=== PATIENT | female | born 1965 | race Caucasian/White ===

== ENCOUNTER 2020-01-10 09:53 | Day surgery (SDC) | payer MEDICARE, MEDICAID, SELFPAY ==
[2020-01-03 13:39] VITALS: BMI 32.4
--- NOTE | 2020-01-06 09:44 | MHC.SHP ---
Pre-Procedural Eval Section A The patient is an INPATIENT: No Changes since office visit: No Cold of Flu in the past 2 weeks, No New Medical Problems, No Changes in Medication and No Patient answered all questions The History & Physical has been completed within 30 days and I have reviewed it.: Yes Section B Chief Complaint: Bilateral Dermatochalasis Allergies: Allergies Allergy/AdvReac Type Severity Reaction Status Date / Time No Known Allergies Allergy Verified 01/03/20 13:50 Plan Diagnosis/Plan: Unchanged Patient has been examined and remains a candidate for the planned procedure
--- NOTE | 2020-01-07 14:27 | HO.ANESPROP2 ---
Documented by User: Jil Cristobal 01/07/20 14:28 HPI - Anesthesia Eval Consult details Narrative: 54yo F for bilateral blepharoplasty PCP cleared [facility] Past Medical History Medical History Arthritis Back pain COPD (chronic obstructive pulmonary disease) History of fibromyalgia History of postoperative nausea and vomiting Hx of anxiety disorder Hx of syncope Hx pulmonary embolism Sleep apnea Wears dentures Surgical History Surgical History (Updated 01/03/20 @ 13:45 by Anjelica Holley) History of carpal tunnel release History of lumbar fusion Hx of cholecystectomy Hx of ventral hernia repair S/P panniculectomy Social History Social History Smoking Status: Former smoker Smoked in Last 30 Days: No Smoking Quit Date: 1993 Use of substances other than those prescribed or required for medical reasons: No Advance Directives Information Provided: No Recently lost weight without trying: No Meds Allergies Allergy/AdvReac Type Severity Reaction Status Date / Time No Known Allergies Allergy Verified 01/03/20 13:50 Home Medications Medication Instructions Recorded Confirmed Type fluticasone propionate [Flovent] 1 puff INHALATION QAM 01/03/20 01/03/20 History levalbuterol tartrate [Xopenex HFA] 2 puff INHALATION Q4-6H PRN 01/03/20 01/03/20 History salmeterol [Serevent Diskus] 1 inh INHALATION QPM 01/03/20 01/03/20 History Exam Exam Date and Time: January 07, 2020 1427 Height,Weight and Vital Signs: Height 5 ft 6 in Weight 91.1 kg Assessment and Plan Assessment Anesthesia Assessment: Chart Reviewed Documented by User: Ting Solis 01/10/20 11:25 [facility] Past Medical History Medical History Arthritis Back pain COPD (chronic obstructive pulmonary disease) History of fibromyalgia History of postoperative nausea and vomiting Hx of anxiety disorder Hx of syncope Hx pulmonary embolism Sleep apnea Wears dentures Surgical History Surgical History (Updated 01/03/20 @ 13:45 by Anjelica Holley) History of carpal tunnel release History of lumbar fusion Hx of cholecystectomy Hx of ventral hernia repair S/P panniculectomy Social History Social History Smoking Status: Former smoker Smoked in Last 30 Days: No Smoking Quit Date: 1993 Use of substances other than those prescribed or required for medical reasons: No Advance Directives Information Provided: No Recently lost weight without trying: No Meds Allergies Allergy/AdvReac Type Severity Reaction Status Date / Time No Known Allergies Allergy Verified 01/03/20 13:50 Home Medications Medication Instructions Recorded Confirmed Type fluticasone propionate [Flovent] 1 puff INHALATION QAM 01/03/20 01/03/20 History levalbuterol tartrate [Xopenex HFA] 2 puff INHALATION Q4-6H PRN 01/03/20 01/03/20 History salmeterol [Serevent Diskus] 1 inh INHALATION QPM 01/03/20 01/03/20 History Exam Airway Mallampati Class: I TM Dist: >3cm Denture: Upper and Lower Heart: RRR Lungs: CTA BL Assessment and Plan Assessment Anesthesia Assessment: Anesthesia Plan Discussed and Chart Reviewed Final Anesthetic Review NPO: Yes (Took inhaler) ASA Class: III Final Preanesthetic Review: Meds/Allgs Chart Reviewed and Consent Obtained/Reviewed Patient Risk: Intermediate Procedure Risk: Intermediate Anesthetic Plan Anesthetic Plan: MAC: Disposition: Standard PACU
[2020-01-10 11:22] VITALS: BP 128/72; PULSE 66; RESP 18; TEMP 36.4; O2SAT 96
[2020-01-10 11:38] VITALS: BP 128/72; PULSE 66; RESP 18; TEMP 36.4; O2SAT 96
[2020-01-10] MEDS: Lactated Ringers 500 ML 50 ML IV (11:40)
[2020-01-10 13:22] VITALS: BP 124/75; PULSE 54; RESP 16; TEMP 36.6; O2SAT 99
--- NOTE | 2020-01-10 13:22 | HO.PNOPHT ---
Ophthalmology Procedure Procedure Ophthalmology Viscoelastic: Not Applicable Ophthalmology Lenses: Not Applicable Procedure Notes: PREOPERATIVE DIAGNOSIS: Decreased visual field secondary to dermatochalasia and Left Upper Lid Lesion(Inclusion Cyst) POSTOPERATIVE DIAGNOSIS: Same PROCEDURE: Bilateral Blepharoplasty, upper eyelids and Excisional Biopsy SURGEON: Francis Beasley M.D. ANESTHESIA: Local with sedation ESTIMATED BLOOD LOSS: None COMPLICATIONS: None After obtaining informed consent, the patient was brought to the operating room and placed in supine position. After adequate sedation per Anesthesia, the eyes were prepped and draped in the usual sterile fashion. Attention was directed to the right eye where a double pinch test was completed to assure excess tissue was not removed from the upper lid. The margin was marked at the proposed incision sites. The left eye was done in a similar fashion. 2% Lidocaine with epinephrine was then instilled subcutaneously along the margin of the pre-marked skin incisions. #15 scalpel blade was then utilized to create the incisions. Using a combination of sharp and blunt dissection with Juancho scissors, the epidermis was removed. Hemostasis was achieved with cautery. 6-0 plain suture was then utilized to close the incision site. Attention was directed to the left upper lid where subcutaneous 2% with Epinephrine Lidocaine was instilled along the pre-marked areas. A #15 scalpel blade was then utilized to create the incisions followed by sharp and blunt dissection with Juancho scissors to remove the overlying epidermis. Hemostasis was achieved with cautery, followed by closure with 6-0 plain suture. Attension was directed to the Left Upper Eyelid which was injected with Local Lidocaine, 0.25 ml. A 15 scapel was utilized t o perform a shave biopsy. The patient tolerated the procedure well. The patient will be followed up in the a.m. Topical antibiotic ointment was instilled over the incision sites and ice as tolerated for 48 hours.
[2020-01-10 13:29] VITALS: BP 128/70; PULSE 51; RESP 17; O2SAT 99
[2020-01-10 13:34] VITALS: BP 124/71; PULSE 50; RESP 17; O2SAT 100
[2020-01-10 13:49] VITALS: BP 133/70; PULSE 52; RESP 17; O2SAT 99
--- NOTE | 2020-01-10 14:13 | HO.POSTANES ---
Post Anesthesia Evaluation Post Anesthesia Evaluation Vital Signs: Vital Signs Temp Pulse Resp BP Pulse Ox 01/10/20 13:49 97.9 F 52 17 133/70 99 01/10/20 13:34 50 17 124/71 100 01/10/20 13:29 51 17 128/70 99 01/10/20 13:22 97.9 F 54 16 124/75 99 01/10/20 11:38 97.5 F 66 18 128/72 96 01/10/20 11:22 97.5 F 66 18 128/72 96 Anesthesia: Monitored Mental Status: Awake Pain Control: Satisfactory Nausea/Vomiting: None Hydration: Adequate Anesthesia-Related Issues: No Anes. Related Issues
== END 2020-01-10 23:59 | disposition home or self-care (01) ==
PROVIDERS: PCP Internal Medicine; Visit Provider Ophthalmology
PROC: (CPT 15823; principal; 2020-01-10 12:30)
DX: H02.834 Dermatochalasis of left upper eyelid (principal); H02.831 Dermatochalasis of right upper eyelid; D22.121 Melanocytic nevi of left upper eyelid, including canthus; J44.9 Chronic obstructive pulmonary disease, unspecified; G47.30 Sleep apnea, unspecified; Z79.51 Long term (current) use of inhaled steroids; Z86.711 Personal history of pulmonary embolism; Z87.891 Personal history of nicotine dependence
CPT/HCPCS: 15823; 67840; 88305; J2250; J3010

== ENCOUNTER 2020-08-17 13:16 | Emergency (ER) | payer MEDICARE, MEDICAID, SELFPAY ==
--- NOTE | 2020-08-17 | ECG_ITS ---
Test Reason : CHEST PAIN Blood Pressure : / mmHG Vent. Rate : 066 BPM Atrial Rate : 066 BPM P-R Int : 166 ms QRS Dur : 084 ms QT Int : 434 ms P-R-T Axes : 007 012 018 degrees QTc Int : 454 ms Normal sinus rhythm Normal ECG When compared with ECG of 30-JAN-2018 11:45, No significant change was found Referred By: Generic ED Physician Electronically Signed By:APARNA JULIAN MD
--- NOTE | ~2020-08-17 | XR_ITS ---
EXAMINATION: XR CHEST CLINICAL INFORMATION: Cough. COMPARISON: 11/30/2018 chest radiographs. TECHNIQUE: 2 views of the chest were obtained. FINDINGS: The lungs are clear. The heart and mediastinal structures are unremarkable. A leadless pacemaker device is again seen overlying the cardiac silhouette without interval change. XR/XR chest 2V IMPRESSION: No acute cardiopulmonary process.
--- NOTE | ~2020-08-17 | US_ITS ---
EXAMINATION: US VENOUS ULTRASOUND WITH DOPPLER LOWER EXTREMITY, LEFT CLINICAL INFORMATION: Pain COMPARISON: None TECHNIQUE: Ultrasound of the deep veins is performed from the hip to the calf with compression sonography and color and pulse Doppler assessment. Spectral analysis with color-flow imaging is performed. FINDINGS: There is normal venous compression and respiratory variation and augmented flow. The visualized common femoral vein, superficial femoral vein, profunda femoral vein, popliteal vein, and the trifurcation region shows no evidence of deep venous thrombosis. There is no significant popliteal fossa cyst. If the patient's symptoms persist, followup ultrasound in 5 days 7 days might be of value to exclude proximal propagation from a non-visualized calf vein. US/US venous duplex LE LT IMPRESSION: No DVT demonstrated in the left lower extremity.
[2020-08-17 13:33] VITALS: BP 149/82; PULSE 89; RESP 18; TEMP 36.8; O2SAT 99; BMI 36.6
[2020-08-17 15:37] LABS: MANUAL DIFF FLAG NO
[2020-08-17 15:39] LABS: Basophils Absolute Auto 0.1 X10*3/uL (0.0-0.2); Basophils Percent Auto 0.7 % (0-2); Eosinophils Absolute Auto 0.1 X10*3/uL (0.0-0.4); Eosinophils Percent Auto 0.7 % (0-4); Hematocrit 39.6 % (37-47); Hemoglobin 13.2 g/dl (12.0-16.0); Imm Gran Abs Auto 0.01 X10*3/uL (0.00-0.03); Imm Gran Pct Auto 0.1 % (0.0-0.4); Lymphocytes Absolute Auto 1.8 X10*3/uL (1.2-4.9); Lymphocytes Percent Auto 24.6 % (20-40); Mean Corpuscular HGB Conc 33.3 g/dl (31.0-35.0); Mean Corpuscular Hemoglobin 28.9 pg (27.0-33.0); Mean Corpuscular Volume 86.7 fL (80-98); Monocytes Absolute Auto 0.5 X10*3/uL (0.1-1.2); Monocytes Percent Auto 6.8 % (2-11); Neutrophils Absolute Auto 4.9 X10*3/uL (2.0-8.3); Neutrophils Percent Auto 67.1 % (45-73); Platelet Count 291 X10*3/uL (160-400); Red Blood Count 4.57 X10*6/uL (4.20-5.50); Red Cell Distribution Width 12.7 % (11.0-16.0); White Blood Count 7.3 X10*3/uL (4.8-10.8)
[2020-08-17 15:49] LABS: D Dimer 200 NG/ML
[2020-08-17 16:00] VITALS: BP 145/85; PULSE 75; RESP 18; O2SAT 98
[2020-08-17 16:14] LABS: Alanine Aminotransferase 8 U/L (0-31); Albumin Level 4.3 g/dL (3.5-5.0); Alkaline Phosphatase 92 U/L (39-117); Anion Gap 14 (12-20); Aspartate Amino Transferase 15 U/L (5-31); Bilirubin Total 0.4 mg/dL (0.0-1.0); Blood Urea Nitrogen 15 mg/dL (9-16); Calcium 9.4 mg/dL (8.4-10.2); Carbon Dioxide 24 mmol/L (22-29); Chloride 106 mmol/L (96-108); Creatinine Clr Calc Pharmacy 90.6; Estimated Glomerular Filt Rate > 60; Glucose Random 79 mg/dL (60-115); Potassium 4.3 mmol/L (3.3-5.1); Sodium 140 mmol/L (135-145); Total Protein 6.7 g/dL (6.5-8.0)
[2020-08-17 16:24] LABS: Troponin-I High Sensitivity < 3.5 ng/L (<3.5-17.0)
--- NOTE | 2020-08-17 18:42 | ED_ITS ---
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 Patient comes to the emergency department complaining of increased cough, left lower extremity swelling dizziness when walking and painful lumps to her left inner thigh. She states this began approximately 3 weeks ago after she flew to [place], which she states was benefits 3 hour flight but then took a [address] back to [place]. She denies hemoptysis. She states she has COPD so she does cough at her baseline but has been worse than her normal. She is taking all of her COPD medications. Related Data Home Medications Medication Instructions Recorded Confirmed fluticasone propionate [Flovent] 1 puff INHALATION QAM 01/03/20 01/03/20 levalbuterol tartrate [Xopenex HFA] 2 puff INHALATION Q4-6H PRN 01/03/20 01/03/20 salmeterol [Serevent Diskus] 1 inh INHALATION QPM 01/03/20 01/03/20 Allergies Allergy/AdvReac Type Severity Reaction Status Date / Time No Known Allergies Allergy Verified 01/03/20 13:50 [facility] Past Medical History Medical History Arthritis Back pain COPD (chronic obstructive pulmonary disease) History of fibromyalgia History of postoperative nausea and vomiting Hx of anxiety disorder Hx of syncope Hx pulmonary embolism Sleep apnea Wears dentures Surgical History (Updated 01/03/20 @ 13:45 by Anjelica Holley) History of carpal tunnel release History of lumbar fusion Hx of cholecystectomy Hx of ventral hernia repair S/P panniculectomy Social History Social History Alcohol intake: never Patient Tobacco Use Status: Never used Tobacco Smoked in Last 30 Days: No Use of substances other than those prescribed or required for medical reasons: No Advance Directives: No Advance Directives Information Provided: No Patient : No Physical Exam Vital Signs: Vital Signs: Last Vital Signs Temp 98.2 F 08/17/20 13:33 Pulse 75 08/17/20 16:00 Resp 18 06/10/21 16:00 BP 145/85 H 08/17/20 16:00 Pulse Ox 98 08/17/20 16:00 Body Mass Index 36.6 Course Course Course Narrative: Patient is a 54-year-old female with a past medical history of COPD, 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 Patient comes to the emergency department complaining of increased cough, left lower extremity swelling dizziness when walking and painful lumps to her le ft inner thigh. VSS, initial labs WNL however D-dimer was 200. Due to the fact the patient has a prior history of the DVTs with PEs and the fact that she did just have a sedentary car ride for 12 hours plus a plane flight with increased cough and shortness of breath with exertion, and left lower extremity pain and swelling, I will get a left lower extremity US to r/o DVT. Reevaluation(s) Reevaluation #1: US negative for DVT, recommendation was that if symptoms persist to have a repeat ultrasound in 5-7 days, will advise patient and discharge home. Medical Decision Making Lab Data Lab results reviewed: Yes I reviewed the patient's lab results. Result diagrams: 08/17/20 15:24 08/17/20 15:24 Labs: Lab Results 08/17/20 08/17/20 08/17/20 Range/Units 15:24 15:24 15:24 WBC 7.3 (4.8-10.8) X10*3/uL RBC 4.57 (4.20-5.50) X10*6/uL Hgb 13.2 (12.0-16.0) g/dl Hct 39.6 (37-47) % MCV 86.7 (80-98) fL MCH 28.9 (27.0-33.0) pg MCHC 33.3 (31.0-35.0) g/dl RDW 12.7 (11.0-16.0) % Plt Count 291 (160-400) X10*3/uL MPV 10.0 (9.4-12.3) fL Immature Gran % (Auto) 0.1 (0.0-0.4) % Neut % (Auto) 67.1 (45-73) % Lymph % (Auto) 24.6 (20-40) % Greenlee % (Auto) 6.8 (2-11) % Eos % (Auto) 0.7 (0-4) % Baso % (Auto) 0.7 (0-2) % Lymph # (Auto) 1.8 (1.2-4.9) X10*3/uL Greenlee # (Auto) 0.5 (0.1-1.2) X10*3/uL Eos # (Auto) 0.1 (0.0-0.4) X10*3/uL Baso # (Auto) 0.1 (0.0-0.2) X10*3/uL Abs Immat Gran (auto) 0.01 (0.00-0.03) X10*3/uL Absolute Neuts (auto) 4.9 (2.0-8.3) X10*3/uL Absolute Nucleated RBC 0.000 (0.0-0.012) X10*3/uL Nucleated RBC % (auto) 0.0 (0.0-0.2) /100WBC D-Dimer 200 NG/ML Sodium 140 (135-145) mmol/L Potassium 4.3 (3.3-5.1) mmol/L Chloride 106 (96-108) mmol/L Carbon Dioxide 24 (22-29) mmol/L Anion Gap 14 (12-20) BUN 15 (9-16) mg/dL Creatinine 0.83 (0.5-1.4) mg/dL Estim Creat Clear Calc 90.6 Estimated GFR > 60 Random Glucose 79 (60-115) mg/dL Calcium 9.4 (8.4-10.2) mg/dL Total Bilirubin 0.4 (0.0-1.0) mg/dL AST 15 (5-31) U/L ALT 8 (0-31) U/L Alkaline Phosphatase 92 (39-117) U/L Troponin I High Sens (<3.5-17.0) ng/L Total Protein 6.7 (6.5-8.0) g/dL Albumin 4.3 (3.5-5.0) g/dL 08/17/20 Range/Units 15:24 WBC (4.8-10.8) X10*3/uL RBC (4.20-5.50) X10*6/uL Hgb (12.0-16.0) g/dl Hct (37-47) % MCV (80-98) fL MCH (27.0-33.0) pg MCHC (31.0-35.0) g/dl RDW (11.0-16.0) % Plt Count (160-400) X10*3/uL MPV (9.4-12.3) fL Immature Gran % (Auto) (0.0-0.4) % Neut % (Auto) (45-73) % Lymph % (Auto) (20-40) % Greenlee % (Auto) (2-11) % Eos % (Auto) (0-4) % Baso % (Auto) (0-2) % Lymph # (Auto) (1.2-4.9) X10*3/uL Greenlee # (Auto) (0.1-1.2) X10*3/uL Eos # (Auto) (0.0-0.4) X10*3/uL Baso # (Auto) (0.0-0.2) X10*3/uL Abs Immat Gran (auto) (0.00-0.03) X10*3/uL Absolute Neuts (auto) (2.0-8.3) X10*3/uL Absolute Nucleated RBC (0.0-0.012) X10*3/uL Nucleated RBC % (auto) (0.0-0.2) /100WBC D-Dimer NG/ML Sodium (135-145) mmol/L Potassium (3.3-5.1) mmol/L Chloride (96-108) mmol/L Carbon Dioxide (22-29) mmol/L Anion Gap (12-20) BUN (9-16) mg/dL Creatinine (0.5-1.4) mg/dL Estim Creat Clear Calc Estimated GFR Random Glucose (60-115) mg/dL Calcium (8.4-10.2) mg/dL Total Bilirubin (0.0-1.0) mg/dL AST (5-31) U/L ALT (0-31) U/L Alkaline Phosphatase (39-117) U/L Troponin I High Sens < 3.5 (<3.5-17.0) ng/L Total Protein (6.5-8.0) g/dL Albumin (3.5-5.0) g/dL Imaging Data Chest x-ray: Attestation: I personally reviewed and interpreted this imaging study as follows: Radiologist's impression: No acute cardio pulmonary process US LLE..: Attestation: I personally reviewed and interpreted this imaging study as follows: Radiologist's impression: [address] [id number] ReportSigned Patient: Gardenia Jhaveri LMR#: [id number]: [id number]:[id number]/Sex: 54 / FADM Date: 08/17/20Loc: [facility] Dr: Ordering Physician: Sara Willis PA-C Date of Service: 08/17/20 Procedure(s): US venous duplex LE LT Accession Number(s): [id number] cc: Sara Willis PA-C~ EXAMINATION: US VENOUS ULTRASOUND WITH DOPPLER LOWER EXTREMITY, LEFT CLINICAL INFORMATION: Pain COMPARISON: None TECHNIQUE: Ultrasound of the deep veins is performed from the hip to the calf with compression sonography and color and pulse Doppler assessment. Spectral analysis with color-flow imaging is performed. FINDINGS: There is normal venous compression and respiratory variation and augmented flow. The visualized common femoral vein, superficial femoral vein, profunda femoral vein, popliteal vein, and the trifurcation region shows no evidence of deep venous thrombosis. There is no significant popliteal fossa cyst. If the patient's symptoms persist, followup ultrasound in 5 days 7 days might be of value to exclude proximal propagation from a non-visualized calf vein. US/US venous duplex LE LT IMPRESSION: No DVT demonstrated in the left lower extremity. Dictated By:LAURI GALLOWAY MDSigned By:<Electronically signed by LAURI GALLOWAY MD in OV>08/17/201837 DD/ 47TD/TT: Clinical Data Research: ENRIQUE ECG Data Attestation: I personally reviewed and interpreted this ECG as follows: Interpretation: 66BPM, NSR signed by Dr Nolasco. Discharge Plan Discharge Clinical Impression: Left leg swelling Acute leg pain Qualifiers: Laterality: left Qualified Code(s): M79.605 - Pain in left leg Patient Disposition: Home, Self-Care Instructions: Leg Pain (ED) Additional Instructions: If the patient's symptoms persist, followup ultrasound in 5 days 7 days might be of value to exclude proximal propagation from a non-visualized calf vein. If you experience any of the following, please come back to the emergency room or call 911, coughing up blood, an elevated heart rate, over 100 beats per minute, shortness of breath, chest pain, increased leg pain and swelling. Otherwise, please be sure to follow-up with your PCP for the possible follow-up ultrasound. Prescriptions: No Action Serevent Diskus 50 mcg/dose Blister With Device 1 inh INHALATION QPM RF: 0 Flovent 220 mcg/actuation Hfa Aerosol Inhaler 1 puff INHALATION QAM RF: 0 levalbuterol tartrate [Xopenex HFA] 45 mcg/actuation Hfa Aerosol Inhaler 2 puff INHALATION Q4-6H PRN (Reason: Shortness Of Breath) RF: 0 Referrals: Avery Dyson MD [Primary Care Provider] - 5 days (follow up US in 5-7 days if symptoms persist)
== END 2020-08-17 19:45 | disposition home or self-care (01) ==
PROVIDERS: Emergency Provider Emergency Medicine; PCP Internal Medicine
DX: M79.605 Pain in left leg (principal); M79.89 Other specified soft tissue disorders; R22.42 Localized swelling, mass and lump, left lower limb; R05 Cough; R42 Dizziness and giddiness; J44.9 Chronic obstructive pulmonary disease, unspecified; Z86.711 Personal history of pulmonary embolism; Z86.718 Personal history of other venous thrombosis and embolism
CPT/HCPCS: 36415; 71046; 80053; 84484; 85025; 85379; 93005; 93971; 99284

== ENCOUNTER 2020-09-07 09:09 | Outpatient (REF) | payer MEDICARE, MEDICAID, SELFPAY ==
--- NOTE | ~2020-09-07 | XR_ITS ---
EXAMINATION: XR FOOT, RIGHT CLINICAL INFORMATION: Pain and deformity. COMPARISON: Radiographs dated 08/28/2018. TECHNIQUE: AP, lateral, and oblique views of the right foot. FINDINGS: Bony mineralization is normal. There are right second through fourth hammertoe deformities. No fracture, dislocation or right ankle joint effusion is seen. There is a small accessory obscuration center seen adjacent to the fifth metatarsal base. Boehler's angle is normal. There are small posterior and moderate plantar calcaneal spurs. On the lateral view, there is peripheral osteophyte formation of the dorsal aspect of the articulation between the navicular and first cuneiform. No focal bone erosion or periosteal thickening is seen. The soft tissue planes are unremarkable, without gas or foreign body. XR/XR foot LT min 3V IMPRESSION: 1. There are right second through fourth hammertoe deformities. 2. There are calcaneal spurs. 3. No focal bone erosion or periosteal thickening is seen. EXAMINATION: XR FOOT, LEFT CLINICAL INFORMATION: Pain and deformity. COMPARISON: Radiographs dated 08/28/2017. TECHNIQUE: AP, lateral, and oblique views of the left foot. FINDINGS: Bone mineralization is normal. There are left second through fourth hammertoe deformities. No fracture, dislocation or left ankle joint effusion is seen. Boehler's angle is normal. There are moderate posterior and plantar calcaneal spurs. No focal bone erosion or periosteal thickening is seen. The soft tissue planes are unremarkable, without gas or foreign body. IMPRESSION: 1. There are left second through fourth hammertoe deformities. 2. There are calcaneal spurs. 3. No focal bone erosion or periosteal thickening is seen.
--- NOTE | ~2020-09-07 | XR_ITS ---
EXAMINATION: XR FOOT, RIGHT CLINICAL INFORMATION: Pain and deformity. COMPARISON: Radiographs dated 08/28/2018. TECHNIQUE: AP, lateral, and oblique views of the right foot. FINDINGS: Bony mineralization is normal. There are right second through fourth hammertoe deformities. No fracture, dislocation or right ankle joint effusion is seen. There is a small accessory obscuration center seen adjacent to the fifth metatarsal base. Boehler's angle is normal. There are small posterior and moderate plantar calcaneal spurs. On the lateral view, there is peripheral osteophyte formation of the dorsal aspect of the articulation between the navicular and first cuneiform. No focal bone erosion or periosteal thickening is seen. The soft tissue planes are unremarkable, without gas or foreign body. XR/XR foot RT min 3V IMPRESSION: 1. There are right second through fourth hammertoe deformities. 2. There are calcaneal spurs. 3. No focal bone erosion or periosteal thickening is seen. EXAMINATION: XR FOOT, LEFT CLINICAL INFORMATION: Pain and deformity. COMPARISON: Radiographs dated 08/28/2017. TECHNIQUE: AP, lateral, and oblique views of the left foot. FINDINGS: Bone mineralization is normal. There are left second through fourth hammertoe deformities. No fracture, dislocation or left ankle joint effusion is seen. Boehler's angle is normal. There are moderate posterior and plantar calcaneal spurs. No focal bone erosion or periosteal thickening is seen. The soft tissue planes are unremarkable, without gas or foreign body. IMPRESSION: 1. There are left second through fourth hammertoe deformities. 2. There are calcaneal spurs. 3. No focal bone erosion or periosteal thickening is seen.
== END 2020-09-07 09:10 | disposition home or self-care (01) ==
LOC: HO.XRAY 09:09
PROVIDERS: PCP Internal Medicine; Visit Provider Podiatrist
DX: M79.672 Pain in left foot (principal); M79.671 Pain in right foot
CPT/HCPCS: 73630

== ENCOUNTER → 2022-06-13 13:26 | Outpatient (BNVA) | payer MEDICARE, MEDICAID, SELFPAY | PROVIDERS: PCP Family Medicine; Visit Provider Internal Medicine | DX: F41.9 Anxiety disorder, unspecified (principal); J98.4 Other disorders of lung; G47.33 Obstructive sleep apnea (adult) (pediatric) | CPT/HCPCS: 94010; 99212 ==

== ENCOUNTER → 2022-06-26 15:19 | Outpatient (REF) | payer MEDICARE, MEDICAID, SELFPAY | LOC: HO.SL 15:19 | PROVIDERS: PCP Family Medicine; Visit Provider Internal Medicine | DX: G47.33 Obstructive sleep apnea (adult) (pediatric) (principal); E66.9 Obesity, unspecified; J98.4 Other disorders of lung | CPT/HCPCS: 95806 ==

== ENCOUNTER 2022-10-11 14:39 | Emergency (ER) | payer MEDICARE, MEDICAID, SELFPAY ==
--- NOTE | 2022-10-11 14:42 | ED_ITS ---
HPI - General Adult General Chief complaint: Abdominal Pain Stated complaint: back pain / nausea Time Seen by Provider: 10/11/22 15:55 Related Data Home Medications Medication Instructions Recorded Confirmed fluticasone propionate 220 1 puff inhalation QAM 01/03/20 01/03/20 mcg/actuation HFA aerosol inhaler levalbuterol tartrate 45 2 puff inhalation Q4-6H PRN 01/03/20 01/03/20 mcg/actuation aerosol inhaler Shortness Of Breath (Xopenex HFA) salmeterol 50 mcg/dose blister 1 inh inhalation QPM 01/03/20 01/03/20 powder for inhalation (Serevent Diskus) Lactobacillus acidophilus 1.5 mg 500 mmu cells PO DAILY 06/13/22 (250 million cell) capsule cholecalciferol (vitamin D3) 25 25 mcg PO DAILY 06/13/22 mcg (1,000 unit) capsule cyclobenzaprine 10 mg tablet 10 mg PO TID 06/13/22 docusate sodium 100 mg capsule 100 mg PO DAILY 06/13/22 gabapentin 100 mg capsule 100 mg PO TID 06/13/22 melatonin 3 mg capsule 3 mg PO BEDTIME PRN 06/13/22 ropinirole 0.5 mg tablet 0.5 mg PO BEDTIME 06/13/22 Allergies Allergy/AdvReac Type Severity Reaction Status Date / Time No Known Allergies Allergy Verified 06/13/22 14:28 [facility] Past Medical History Medical History (Updated 10/14/22 @ 07:15 by Brittney Arzate NP) Anxiety disorder Arthritis Back pain COPD (chronic obstructive pulmonary disease) History of fibromyalgia History of postoperative nausea and vomiting Hx of anxiety disorder Hx of syncope Hx pulmonary embolism Obesity (BMI 30-39.9) ERIKA (obstructive sleep apnea) Restrictive lung disease Sleep apnea Wears dentures Surgical History History of carpal tunnel release History of lumbar fusion Hx of cholecystectomy Hx of ventral hernia repair S/P panniculectomy Social History Social History Alcohol intake: never Patient Tobacco Use Status: Never used Tobacco Advance Directives: No Advance Directives Information Provided: No Physical Exam ED Vital Signs: BMI result Body Mass Index 30.8 Course Course Course Narrative: This is a rapid medical exam: Additional HPI, ROS, PE not included below will be deferred to primary provider. Patient is a 56-year-old female with history of back pain, arthritis, COPD, ERIKA, anxiety, restrictive lung disease presenting to the emergency department with complaint of lower back pain radiating up to mid back/flanks. States today pain has increased and is causing nausea. Reports bladder pressure but denies other urinary symptoms. States she had an MRI Friday for the same pain, but has not received the results yet. Plan: UA Discharge Plan Discharge Clinical Impression: Back pain Patient Disposition: Elopement Prescriptions: No Action Serevent Diskus 50 mcg/dose Blister With Device 1 inh INHALATION QPM Flovent 220 mcg/actuation Hfa Aerosol Inhaler 1 puff INHALATION QAM levalbuterol tartrate [Xopenex HFA] 45 mcg/actuation Hfa Aerosol Inhaler 2 puff INHALATION Q4-6H PRN (Reason: Shortness Of Breath) cholecalciferol (vitamin D3) 25 mcg (1,000 unit) capsule 25 mcg PO DAILY cyclobenzaprine 10 mg tablet 10 mg PO TID docusate sodium 100 mg capsule 100 mg PO DAILY gabapentin 100 mg capsule 100 mg PO TID Lactobacillus acidophilus 1.5 mg (250 million cell) capsule 500 mmu cells PO DAILY ropinirole 0.5 mg tablet 0.5 mg PO BEDTIME Rx Instructions: administer 1-3 hours before bedtime melatonin 3 mg capsule 3 mg PO BEDTIME PRN Interventions: ED Discharge Assessment Last Done: 10/11/22 23:02 Discharge Date/Time: 10/11/22 23:03
[2022-10-11 14:54] VITALS: BP 126/81; PULSE 98; RESP 18; TEMP 36.7; O2SAT 98; BMI 30.8
== END 2022-10-11 23:03 | disposition left against medical advice (07) ==
PROVIDERS: Emergency Provider Emergency Medicine
DX: M54.50 Low back pain, unspecified (principal)
CPT/HCPCS: 99282

== ENCOUNTER 2022-12-09 14:49 | Outpatient (AMB) | payer MEDICARE, MEDICAID, SELFPAY ==
[2022-12-09 15:12] VITALS: BP 110/80; PULSE 85; O2SAT 97; BMI 28.5
--- NOTE | 2022-12-09 15:12 | A.OFFVIS_ITS ---
Intake Vital Signs 12/09/22 15:12 Height 5 ft 5 in Weight 171 lb BMI 28.5 BP 110/80 Blood Pressure Location Lt brachial Pulse 85 Pulse Source Pulse Oximeter Pulse Oximetry (%) 97 Oxygen Delivery Method Room Air Intake Visit Reasons: Pneumonia/ERIKA Intake Note: pt is here for follow up and states she always feels heavy chested, she went to neurologist and her O2 was 94 and she was always in the 98-99 area. pt had stroke in October 17, and feels like she does still gasps for air. She is walking everyday, and is down over 50 lbs. [employer] Required: No Allergies No Known Allergies Allergy (Verified 12/09/22 15:20) [facility] Medical History (Updated 10/15/22 @ 00:01 by Pepito Green) Obesity (BMI 30-39.9) ERIKA (obstructive sleep apnea) Restrictive lung disease Anxiety disorder Sleep apnea Wears dentures History of postoperative nausea and vomiting Arthritis Back pain History of fibromyalgia Hx of anxiety disorder Hx pulmonary embolism COPD (chronic obstructive pulmonary disease) Hx of syncope Surgical History History of lumbar fusion S/P panniculectomy Hx of ventral hernia repair Hx of cholecystectomy History of carpal tunnel release Social History Alcohol intake: never Patient Tobacco Use Status: Never used 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
--- NOTE | 2022-12-09 15:25 | A.OFFVIS_ITS ---
Intake Vital Signs 12/09/22 15:12 Height 5 ft 5 in Weight 171 lb BMI 28.5 BP 110/80 Blood Pressure Location Lt brachial Pulse 85 Pulse Source Pulse Oximeter Pulse Oximetry (%) 97 Oxygen Delivery Method Room Air Intake Visit Reasons: Pneumonia/ERIKA Allergies No Known Allergies Allergy (Verified 12/09/22 15:38) Medication List - Last Reconciled 12/09/22 by Irene Mcdaniel MD aspirin 81 mg PO DAILY atorvastatin 80 mg PO BEDTIME cholecalciferol (vitamin D3) 25 mcg PO DAILY clopidogrel (Plavix) 75 mg PO DAILY cyclobenzaprine 10 mg PO TID PRN gabapentin 100 mg PO TID magnesium oxide 400 mg PO DAILY melatonin 3 mg PO BEDTIME PRN ropinirole 0.5 mg PO BEDTIME Do you need a note to return to daycare/school/sports/work: No HPI Pneumonia/ERIKA HPI Details 57 years old female, comes for follow-up for her minimal breathing problem, as well as past history of sleep apnea. States that in October of this year she was admitted at [facility] with this stroke, from which she recovered well. She has intermittent bouts of migrainous syndrome, causing lightheadedness, vertigo and only minimal had a. She is on Plavix 75 mg b.i.d. gabapentin 100 mg t.i.d. ropinirole 0.5 mg at HS . She sleeps fairly well without any excessive snoring or awakenings . Home-based sleep study showed only borderline sleep apnea with total sleep time AHI 5.2, supine. AHI 6.3 and lateral position AHI 2.6 Spirometry had shown only mild restrictive pattern. She is nonsmoker. [facility] Medical History Obesity (BMI 30-39.9) ERIKA (obstructive sleep apnea) Restrictive lung disease Anxiety disorder Sleep apnea Wears dentures History of postoperative nausea and vomiting Arthritis Back pain History of fibromyalgia Hx of anxiety disorder Hx pulmonary embolism COPD (chronic obstructive pulmonary disease) Hx of syncope Surgical History History of lumbar fusion S/P panniculectomy Hx of ventral hernia repair Hx of cholecystectomy History of carpal tunnel release Social History Alcohol intake: never Patient Tobacco Use Status: Never used Tobacco Review of Systems Const All systems reviewed & are unremarkable except as noted in HPI and below Eyes Reports no additional complaints ENT Reports no additional complaints Card Denies chest pain, Denies syncope, Denies irregular heart rhythm, Denies leg edema and Reports dyspnea on exertion Resp Reports as per HPI, Reports cough and Reports dyspnea on exertion GI Reports constipation Reports no additional complaints Musc Reports back pain and Reports myalgias Skin/Breast Reports system reviewed and no additional complaints, except as documented Neuro Denies syncope and Reports restless legs Psych Reports anxiety and Reports depression Endo Reports no additional complaints Aller/Immun Reports no additional complaints Physical Exam Vital Signs: Last Vital Signs Pulse 85 12/09/22 15:12 BP 110/80 12/09/22 15:12 Pulse Ox 97 12/09/22 15:12 Oxygen Delivery Method Room Air 12/09/22 15:12 BMI result Body Mass Index 28.5 Const General: comfortable, no acute distress, alert and awake Orientation/consciousness: patient oriented x3 HEENT Head: Yes normal to inspection General nose exam: No nasal polyps present and No nasal discharge present Face and sinus: Yes sinuses nontender Mouth: oropharynx normal Throat: Yes posterior oropharynx normal Eyes General: appearance normal, both eyes and all related structures Neck Neck: Yes normal visual inspection, Yes no lymphadenopathy, Yes trachea midline and Yes no JVD Thyroid: Thyroid normal Chest Chest palpation & inspection: normal inspection of the chest, normal palpation of entire chest wall and no tenderness Resp Other: PERCUSSION NOTE IS RESONANT, BREATH SOUNDS ARE DISTANT WITH PROLONGED EXPIRATORY PHASE. NO CREPITATIONS OR WHEEZES ARE HEARD. Cardio Palpation: normal PMI Rate: regular rate Rhythm: regular rhythm Heart sounds: no gallops and no murmurs GI Palpation (GI): Soft to palpation, nontender, No hepatosplenomegaly present and no masses Auscultation: normal bowel sounds Back/Spine/Pelvis Thoracic/Lumbar Spine: thoracic and lumbar spine normal to inspection and thoraco-lumbar ROM limited Skin General skin exam: no rashes or lesions noted Neuro General: patient oriented x3 and no focal motor deficits Cranial nerves: Yes CN's II-XII intact bilaterally Extrem General: Yes normal to inspection, Yes no clubbing, cyanosis or edema and Yes no calf tenderness Psych Appearance: grossly normal and well kempt Speech and movement: Normal speech and movement present Assessment & Plan Assessment & Plan (1) Obesity (BMI 30-39.9): Comment: This patient has past history of gross obesity but she has lost weight successfully and current BMI 28.5 Code(s): E66.9 - Obesity, unspecified (2) ERIKA (obstructive sleep apnea): Comment: PATIENT DOES HAVE HISTORY OF OBSTRUCTIVE SLEEP APNEA, SHE DID WELL FOR ABOUT A YEAR WITH THE USE OF CPAP, THEN STOPPED. SHE WANTED TO START BACK ON CPAP THERAPY. BUT A HOME-BASED SLEEP STUDY PERFORMED IN JUNE, SHOWED THE ERIKA ALMOST RESOLVED COMPLETELY. TOTAL SLEEP TIME AHI 5.2, SUPINE POSITION 6.3, AND LATERAL POSITION AHI 2.6. SO I DISCUSSED WITH HER AND SHE DOES NOT NEED TO USE ANY CPAP. Code(s): G47.33 - Obstructive sleep apnea (adult) (pediatric) (3) Restrictive lung disease: Comment: SHE DOES HAVE MILD TO MODERATE DEGREE OF RESTRICTIVE PATTERN WHICH SEEMS TO BE DUE TO BEING OBESE, BUT NOW THAT SHE HAS LOST MORE WEIGHT, I THINK THE RESTRICTIVE COMPONENT WILL BE MUCH LESS. TX : DEEP BREATHING EXERCISES 2 OR 3 TIMES A DAY. MAY USE ALBUTEROL HFA 2 PUFFS Q 4-6 HOURS ONLY P.R.N.. Code(s): J98.4 - Other disorders of lung (4) Anxiety disorder: Comment: THIS IS HER CHRONIC PROBLEM, RELATIVELY CONTROLLED AT PRESENT. Code(s): F41.9 - Anxiety disorder, unspecified Coding Level of Care Code Est Pt Level 3 (15617) Diagnoses Obesity (BMI 30-39.9) E66.9 ERIKA (obstructive sleep apnea) G47.33 Restrictive lung disease J98.4 Anxiety disorder F41.9
== END 2022-12-09 15:52 | disposition home or self-care (01) ==
PROVIDERS: Visit Provider Internal Medicine
DX: E66.9 Obesity, unspecified (principal); G47.33 Obstructive sleep apnea (adult) (pediatric); J98.4 Other disorders of lung; F41.9 Anxiety disorder, unspecified
CPT/HCPCS: 99213

== ENCOUNTER → 2022-12-09 14:49 | Outpatient (BNVA) | payer MEDICARE, MEDICAID, SELFPAY | PROVIDERS: Visit Provider Internal Medicine | DX: G47.33 Obstructive sleep apnea (adult) (pediatric) (principal); J98.4 Other disorders of lung; F41.9 Anxiety disorder, unspecified; E66.9 Obesity, unspecified; Z68.28 Body mass index [BMI] 28.0-28.9, adult | CPT/HCPCS: 99212 ==